=== PATIENT | female | born 1975 | race Caucasian/White ===

== ENCOUNTER 2019-10-07 07:56 | Emergency (ER) | payer OTHER ==
[~2019-10-07] VITALS: Ht 160 cm; Wt 83.5 kg
[2019-10-07 08:23] VITALS: BP 134/85
--- NOTE | 2019-10-07 08:25 | NUR ---
PATIENT AMBULATED WITH STEADY GAIT TO BED 3.
--- NOTE | 2019-10-07 08:38 | NUR ---
44 Y/O F C/O SORE THROAT X 3 DAYS. THROAT IS RED WITH SWELLING, PAIN 3/10. PT DENIES N/V/F. PT HAS NOT TAKEN MEDICATION AT HOME FOR SYMPTOMS. NO COUGH. PT LUNG SOUNDS CLEAR THROUGHOUT. PT POSITIONED FOR COMFORT, BED LOWERED. NKA
[2019-10-07] MEDS ORDERED: DEXAMETHASONE 10 MG/ML VIAL IM ONE (08:50)
--- NOTE | 2019-10-07 09:40 | NUR ---
PT RESTING COMFORTABLY, VS STABLE. PT STATES UNABLE TO TELL IF MEDICATION GIVEN HAS HELPED AT THIS TIME.
[2019-10-07 09:46] VITALS: BP 134/85
== END 2019-10-07 09:46 | disposition home or self-care (01) ==
LOC: MED 07:56
DX: J06.9 Acute upper respiratory infection, unspecified (principal); J03.90 Acute tonsillitis, unspecified
CPT/HCPCS: 96372; 99283; J1100